=== PATIENT | female | born 1990 | race Caucasian/White ===

== ENCOUNTER 2023-05-24 11:46 | Emergency (ER) | payer OTHER, BC ==
[2023-05-24 11:54] VITALS: BP 109/76; PULSE 65; RESP 18; TEMP 97.5; BMI 21.7
[2023-05-24] MEDS ORDERED: KETOROLAC TROMETHAMINE 15 MG/ML VIAL IM ONE (12:15)
[2023-05-24] MEDS ORDERED: LIDOCAINE 5% TOPICAL PATCH TP ONE ×2 (12:15→12:16)
[2023-05-24] MEDS ORDERED: LIDOCAINE 4% PATCH TP ONE (12:17)
[2023-05-24 12:18] LABS: URINE APPEARANCE CLOUDY; URINE BILIRUBIN NEGATIVE (NEGATIVE); URINE COLOR YELLOW; URINE GLUCOSE (UA) NEGATIVE (NEGATIVE); URINE KETONE NEGATIVE (NEGATIVE); URINE LEUK ESTERASE NEGATIVE (NEGATIVE); URINE NITRITE NEGATIVE (NEGATIVE); URINE PROTEIN NEGATIVE (NEGATIVE); URINE UROBILINOGEN 0.2 mg/dL (0.2-1.0)
[2023-05-24] MEDS ORDERED: KETOROLAC TROMETHAMINE 15 MG/ML VIAL ONE (12:18)
[2023-05-24 12:28] LABS: HCG,QUALITATIVE URINE Negative
[2023-05-24] MEDS ORDERED: LIDOCAINE PATCH REMOVAL MC ONE ×2 (22:00)
== END 2023-05-24 13:28 | disposition home or self-care (01) ==
LOC: JERFT 11:46
PROC: 3E0233Z Introduction of Anti-inflammatory into Muscle, Percutaneous Approach (ICD-10-PCS; principal; 2023-05-24)
DX: M54.50 Low back pain, unspecified (principal); R30.0 Dysuria; R39.15 Urgency of urination; X50.0XXA Overexertion from strenuous movement or load, initial encounter; Y93.F2 Activity, caregiving, lifting
CPT/HCPCS: 81003; 84703; 87086; 99284-25